=== PATIENT | female | born 1965 | race Asian ===

== ENCOUNTER 2021-11-19 04:25 | Emergency (ER) | payer OTHER ==
[~2021-11-19] VITALS: Ht 167.6 cm; Wt 66.0 kg
[2021-11-19] MEDS ORDERED: MECLIZINE 25MG TABLET PO ONE (05:45)
[2021-11-19] MEDS ORDERED: ONDANSETRON HCL 4MG/2ML INJ IV ONE (05:45)
[2021-11-19] MEDS ORDERED: SODIUM CHLORIDE 0.9% 1,000 ML IV ONE (05:45)
[2021-11-19 05:47] LABS: BASOPHILS % 0.6 % (0.0-2.0); EOSINOPHILS % 2.7 % (0.0-5.0); HEMATOCRIT. 41.9 % (36.0-48.0); MEAN CORPUSCULAR HEMOGLOBIN 29.2 pg (28.0-32.0); MEAN CORPUSCULAR VOLUME 87.5 fL (81.0-99.0); MONOCYTES % 4.6 % (2.0-8.0); NEUTROPHILS % 49.1 % (40.0-76.0); PLATELET 313 x1000/uL (130-400); RED BLOOD CELL COUNT 4.79 mill/uL (4.2-5.4); RED CELL DISTRIBUTION WIDTH 13.2 % (11.6-14.6)
[2021-11-19 05:51] LABS: CHLORIDE 108 mEq/L (98-107)
[2021-11-19 05:55] LABS: INR 0.9; PROTHROMBIN TIME 10.1 sec (9.6-11.0)
[2021-11-19 06:02] LABS: PHOSPHORUS 1.9 mg/dL (2.5-4.9)
[2021-11-19] MEDS ORDERED: LORAZEPAM 2MG/ML CPJ IV ONE (06:15)
[2021-11-19] MEDS ORDERED: PROCHLORPERAZINE 10MG/2ML VIAL IV ONE (06:15)
[2021-11-19] MEDS ORDERED: METOCLOPRAMIDE HCL 10MG/2ML VIAL IV ONE (06:15)
[2021-11-19 09:07] LABS: CLARITY URINE CLEAR (CLEAR); COLOR URINE YELLOW (YELLOW); KETONES URINE NEGATIVE (NEGATIVE); LEUKOCYTE ESTERASE URINE 3+ (NEGATIVE); NITRITE URINE NEGATIVE (NEGATIVE); OCCULT BLOOD URINE NEGATIVE (NEGATIVE); PROTEIN URINE NEGATIVE (NEGATIVE); SPECIFIC GRAVITY URINE 1.017 (1.005-1.030); UROBILINOGEN URINE 0.2 E.U./dL (0.2-1.0)
[2021-11-19] MEDS ORDERED: MECL-159 MT (09:34)
[2021-11-19 09:47] VITALS: BP 133/81
== END 2021-11-19 09:47 | disposition home or self-care (01) ==
LOC: ER 04:25
DX: H83.09 Labyrinthitis, unspecified ear (principal); R11.10 Vomiting, unspecified; R05.8 Other specified cough
CPT/HCPCS: 36415; 70450; 71045; 80053; 81003; 82962; 83690; 83735; 83880; 84100; 84484; 85025; 85610; 87077; 87086; 93005; 96361; 96374; 96375; 99285; J0780; J2060; J2405; J2765; J7030; J8597